=== PATIENT | female | born 1945 | race Caucasian/White ===

== ENCOUNTER 2018-05-29 10:02 | Inpatient (IN) | payer MEDICARE, OTHER ==
[2018-05-29] MEDS ORDERED: Fentanyl 100 MCG/2 ML VIAL SLOW IVP PRN (10:18)
[2018-05-29] MEDS ORDERED: Acetaminophen 325 MG TAB PO PRN (10:19)
[2018-05-29] MEDS ORDERED: Pantoprazole 40 MG VIAL IVP SCH (10:30)
--- NOTE | 2018-05-29 11:09 | HP ---
REASON FOR ADMISSION: Right upper quadrant pain and abnormal liver enzymes. HISTORY OF PRESENT ILLNESS: Ms. Ren is being admitted to observation at [facility] ry to ongoing right upper quadrant pain, abnormal LFTs. She was ill last week and went to the emerge ncy room at [facility] in [place] on 05/23/2018 for right upper quadrant pain. At that t nash, she had severe upper abdominal pain in the epigastrium that was nonradiating. She had chills, b ut no fever. There she was told she had pancreatitis. She was transferred to the emergency room at [facility] in [place] and was observed and then actually improved and then was discharge d home that afternoon. She was doing pretty well on liquid diet and followed up with Dr. Cramer, her PCP yesterday. Saturday evening she had tried to eat a little bit of egg and had severe pain again. Yesterday, on the , she had an amylase of 94. Lipase was not checked. White count was 8, hemogl obin 14, platelet count was 219. Urinalysis showed 1+ ketones, white blood cells, red blood cells. Comprehensive metabolic profile showed a glucose 134. Normal electrolytes and albumin of 3.1, biliru bin 1.8, alkaline phosphatase of 193 and AST of 88, ALT of 162. He called me and asked if I could se e her this morning. Today, she notes that she has some vague right upper quadrant pain. She is afraid to eat because she does not want to start hurting again. Otherwise, she is doing well. She notes that she has been treated for possible diverticulitis in the past, most recently in April en she took Cipro for a few days, but stopped it because it made her itch. She does not drink alcoho l more than about once or twice a month and when she does, she will have 1-2 drinks. Her last drink was over a month ago. She has not started any new medication. She is not aware of any problems of l ipids. Reviewing her imaging studies from 05/24/2018 at [facility], the CAT scan was done without contr ast and there was concern for cholelithiasis on that study, but the stomach, duodenum and pancreas ap parently appeared normal. A chest x-ray was performed that was normal and then an ultrasound was per formed of her right upper quadrant on 05/24/2018 that was read as unremarkable with a 5 mm common ady t and no pericholecystic fluid, gallbladder wall thickening or stones. Not all the labs are available from her visit in the [facility] Emergency Room, but what I have shows initial white count of 9.2, hemoglobin 13, platelet count 158 on 05/23/2018. The comprehensive metabolic panel on that day showed a BUN and creatinine of 16 and 0.83, bicarbonate 24, bilirubin wa s 2.1, AST was 125, ALT was 85, total protein was 6.6, albumin 3.8, lipase was 4313. Cardiac enzymes were done and were normal. The following day on 05/24/2018 a lipase was checked and was 2600. I do not have any labs that indicate any of the labs were rechecked at that time. As the patient was hav ing no pain she was sent home then. PAST MEDICAL HISTORY: Breast cancer in 2007. She had a mastectomy and chemotherapy. She had a colo noscopy twice, last was 9 years ago. She had diverticulosis only. She has had a laminectomy, tonsil lectomy, appendectomy. She has a fracture of her left wrist in the past. She has mild hypertension. HOME MEDICATIONS: Include atenolol. ALLERGIES: None known. SOCIAL HISTORY: She drinks alcohol 1-3 times per month and only 1-2 drinks when she does. She does not smoke, does not use drugs. FAMILY HISTORY: Negative for pancreatitis. REVIEW OF SYSTEMS: She notes that her sugars have been a little bit up. Her hemoglobin A1c is okay. She denies any dysuria, frequency, urgency. She denies any shortness breath, chest pain, dyspnea o n exertion, dysphagia, odynophagia, melena, hematochezia, hematemesis, weight gain, weight loss, marte ge in appetite, change in weight. PHYSICAL EXAMINATION: (In my office) VITAL SIGNS: Vitals are pending. Pulse is 87. LUNGS: Clear. CARDIAC: Regular rate and rhythm without clicks or murmurs. ABDOMEN: Soft, nontender, without any palpable hepatosplenomegaly. EXTREMITIES: No clubbing, cyanosis or edema. ABDOMEN: Soft and tender in right upper quadrant with palpation, but there is no rebound or guarding in epigastrium. There is no distention. Bowel sounds are positive. EXTREMITIES: No clubbing, cyanosis or edema. ASSESSMENT: The patient had an episode of what appears to be pancreatitis. It may have been biliary as her liver function tests were up, but the ultrasound was normal. CAT scan without contrast perfo rmed and was read as normal. She went home. She had pain again on Saturday night and really has not eaten since that time. She had elevated liver enzymes in Dr. Cramer's office. Her amylase is normal. Lipase was not rechecked. Presently she has mild right upper quadrant tenderness and persistently elevated LFTs in the setting of recent episode of pancreatitis. Differential diagnosis would mainly include biliary pancreatitis. There is some reference in the records from [place] that she had an episode like this in the past, but she states that pain was different, it was more lower abdomen and attributes that to diverticular disease. PLAN: We will place her into observation at [facility], reimage pancreas and gallbladder ar ea with contrast. Repeat her liver enzymes, lipase and labs and get a triglyceride level as well and have her seen by General Surgery.
[2018-05-29 11:55] LABS: #Eosinphils 0.1 thou/uL (0.0-0.7); #Lymphocytes 1.8 thou/uL (1.20-3.40); #Monocytes 0.7 thou/uL (0.11-0.59); #Neutrophils 7.6 thou/uL (1.40-6.50); %Eosinophils 1.1 % (0.0-10.0); %Lymphocytes 17.6 % (21.0-51.0); %Monocytes 6.9 % (0.0-10.0); %Neutrophils 74.5 % (42.0-75.0); Hemoglobin 14.9 g/dL (12.0-16.0); Mean Corpuscular HGB CONC 35.3 g/dL (32.0-36.0); Mean Corpuscular Hemoglobin 31.1 pg (27.0-31.0); Platelet Count 181 thou/uL (130-400); RBC Distribution Width 12.2 % (11.5-14.5); Red Blood Cell (RBC) Count 4.78 mill/uL (4.20-5.40); White Blood Cell (WBC) Count 10.2 thou/uL (4.8-10.8)
[2018-05-29 12:38] LABS: ALT (SGPT) 127 U/L (8-55); AST (SGOT) 76 U/L (5-34); Albumin 3.9 g/dL (3.4-4.8); Alkaline Phosphatase 182 U/L (40-150); Anion Gap 21 mmol/L (10-20); BUN (Urea Nitrogen) 15 mg/dL (9.8-20.1); Bilirubin, Total 2.1 mg/dL (0.2-1.2); Calc. Creatinine Clearance 0 mL/min (70-130); Calcium 9.6 mg/dL (7.8-10.44); Carbon Dioxide 16 mmol/L (23-31); Chloride 101 mmol/L (98-107); Estimated GFR-MDRD 73; Globulin 3.7 g/dL (2.4-3.5); Glucose 107 mg/dL (83-110); Lipase 144 U/L (8-78); Potassium 4.5 mmol/L (3.5-5.1); Protein, Total 7.6 g/dL (6.0-8.3); Sodium 133 mmol/L (136-145)
[2018-05-29] MEDS ORDERED: ISOVUE-370 76%-LOCM 1 ML ONE (13:03)
[2018-05-29 13:37] VITALS: BMI 33.8
[2018-05-29] MEDS: Sodium Chloride 0.9% 1,000 ML IV SCH ×2 (14:42→20:29)
--- NOTE | 2018-05-29 15:50 | CT ---
CT OF THE ABDOMEN AND PELVIS WITH IV CONTRAST 05/29/18 INDICATION: History of pancreatitis and upper abdominal pain. FINDINGS: No comparisons are available. No focal consolidation is seen involving the lung bases. There is mild fatty infiltration of the liver. The pancreas and adrenal glands are normal appearing. The spleen is normal appearing. No enlarged lymph nodes or free fluid is evident. The kidneys are nor mal appearing. The bladder is decompressed. The rectus and perirectal soft tissues are unremarkable. There is some scattered diverticula involving the colon without evidence of active diverticulitis. T he small bowel is of normal caliber. There is a fat containing umbilical hernia. There is scattered degenerative and osteoarthritic change. No definite active osseous abnormality is evident. IMPRESSION: 1. No acute CT abnormality demonstrated. 2. Fatty liver. 3. Colonic diverticulosis. POS: IZA
[2018-05-29] MEDS ORDERED: cefOXitin 2 GM in Sodium Chloride 0.9% 100 ML IVPB SCH (16:15)
--- NOTE | 2018-05-29 18:08 | CON ---
DATE OF CONSULTATION: 05/29/2018 SURGICAL CONSULTATION CONSULTING PHYSICIAN: Mick Rosen M.D. REASON FOR CONSULTATION: Biliary pancreatitis. HISTORY OF PRESENT ILLNESS: The patient is a very pleasant 72-year-old white female. She is from [facility]. About a week ago, she had an episode of severe right upper abdominal pain and was seen in the emergency room at the hospital in [place]. Laboratory studies apparently were indicative of a bilia ry pancreatitis with a lipase level of approximately 4000. Bilirubin is elevated at 2.1 at that time . A CT scan was suggestive of gallstones, but an ultrasound apparently revealed no gallstones. Ther e was no ductal dilatation. The patient was transferred to the [facility] at [place] that night and wa s discharged the following morning when she seemed to be feeling better. Her lipase had dropped down to 2600 at that time. Subsequently, she has continued to feel poorly and has a fear of eating as eating food makes her feel uncomfortable. She has had 1 or 2 episodes of pain, but not as severe. She saw her primary care ph ysician yesterday and was noted to have persistent laboratory abnormality with a bilirubin of 1.8, al kaline phosphatase of 193. She was seen by Dr. Rosen this morning who evaluated her history and rec ommended admission to the hospital for definitive further evaluation and treatment of this problem. LABORATORY DATA: Laboratory studies obtained earlier today revealed that her electrolytes are essent ially normal. Her CO2 level is low at 16. Her bilirubin level is still elevated at 2.1, alkaline ph osphatase is 182. Lipase level is 144. Her CBC reveals a white blood cell count of 10.2 with a hemo globin of 14.9. CT scan of the abdomen was obtained. It has not yet been read by Radiology, but perusal by myself re veals no definite evidence of cholelithiasis. She does appear to have gallbladder wall thickening. There is no evidence of ductal dilatation on the CT either. There is no significant evidence of panc reatitis as well. The patient notes that she has persistent right upper quadrant discomfort, although it is very minor in comparison to when she had a severe episode of pain. PAST MEDICAL HISTORY: 1. Hypertension. 2. Breast cancer in 2007 (treated with mastectomy, chemotherapy, hormonal therapy). 3. Right arm lymphedema. PAST SURGICAL HISTORY: 1. Right mastectomy. 2. Colonoscopy x2. 3. Cervical laminectomy. 4. Tonsillectomy. 5. Appendectomy. 6. Left wrist fracture. ALLERGIES: No known drug allergies. PERSONAL AND SOCIAL HISTORY: She is with 2 children. She is retired and currently lives by herself in [place]. She does not smoke. She drinks alcohol rarely and has not had any alcohol at a ll for over a month. REVIEW OF SYSTEMS: Otherwise, unremarkable. FAMILY HISTORY: Noncontributory. PHYSICAL EXAMINATION: CURRENT VITAL SIGNS: Temperature 97.9, pulse 64, blood pressure 120/68. GENERAL: She is a well-developed, well-nourished, pleasant, somewhat overweight white female. She i s 5 feet 3 inches tall, weighs 191 pounds. She is alert and oriented x3 and pleasant. HEAD, EYES, EARS, NOSE AND THROAT: Unremarkable. NECK: Supple without mass or tenderness. LUNGS: Clear to auscultation throughout. CARDIAC: Regular rate and rhythm without murmur. ABDOMEN: Soft with tenderness in the right upper quadrant with deeper palpation, but no evidence of peritonitis. EXTREMITIES: Unremarkable. ASSESSMENT AND PLAN: The patient who based upon her laboratory findings seems most likely to have díaz d an episode of biliary pancreatitis. No definite gallstones were seen on ultrasound or CT scan, but she still has elevated liver function tests and abnormal symptomatology and she definitely had pancr eatitis without another obvious etiology. At this point, I would recommend proceeding with laparosco pic cholecystectomy with cholangiogram. If her cholangiogram was unremarkable, then she will hopeful ly not require further ductal imaging. I have discussed the operation in detail with the patient as well as potential risks. She understands the indications and the rationale for my recommendation. S he agrees to proceed and is scheduled for surgery tomorrow.
[2018-05-30] MEDS: Sodium Chloride 0.9% 1,000 ML IV SCH ×3 (00:37→20:00)
[2018-05-30 05:12] LABS: #Eosinphils 0.1 thou/uL (0.0-0.7); #Lymphocytes 1.1 thou/uL (1.20-3.40); #Monocytes 0.6 thou/uL (0.11-0.59); #Neutrophils 5.6 thou/uL (1.40-6.50); %Basophils 0.3 % (0.0-1.0); %Eosinophils 1.8 % (0.0-10.0); %Lymphocytes 14.9 % (21.0-51.0); %Monocytes 8.1 % (0.0-10.0); Hemoglobin 12.6 g/dL (12.0-16.0); Mean Corpuscular HGB CONC 33.5 g/dL (32.0-36.0); Mean Corpuscular Volume 89.6 fL (78.0-98.0); Mean Platelet Volume 7.7 fL (7.4-10.4); Platelet Count 169 thou/uL (130-400); RBC Distribution Width 12.3 % (11.5-14.5); Red Blood Cell (RBC) Count 4.21 mill/uL (4.20-5.40); White Blood Cell (WBC) Count 7.5 thou/uL (4.8-10.8)
[2018-05-30 05:28] LABS: ALT (SGPT) 87 U/L (8-55); AST (SGOT) 49 U/L (5-34); Albumin 3.1 g/dL (3.4-4.8); Alkaline Phosphatase 139 U/L (40-150); Anion Gap 12 mmol/L (10-20); BUN (Urea Nitrogen) 11 mg/dL (9.8-20.1); Bilirubin, Total 1.5 mg/dL (0.2-1.2); Calc. Creatinine Clearance 107 mL/min (70-130); Calcium 8.3 mg/dL (7.8-10.44); Carbon Dioxide 23 mmol/L (23-31); Chloride 106 mmol/L (98-107); Estimated GFR-MDRD 88; Globulin 2.7 g/dL (2.4-3.5); Glucose 104 mg/dL (83-110); Lipase 100 U/L (8-78); Potassium 3.8 mmol/L (3.5-5.1); Protein, Total 5.8 g/dL (6.0-8.3); Sodium 137 mmol/L (136-145)
[2018-05-30] MEDS: Pantoprazole 40 MG VIAL IVP SCH (09:17)
[2018-05-30] MEDS ORDERED: Atenolol 25 MG TAB PO SCH (12:00)
[2018-05-30] MEDS ORDERED: Bupivacaine/Epinephrine 0.25% 30 ML VIAL ONE (14:09)
[2018-05-30] MEDS ORDERED: Iothalamate Meglumine 60% 50 ML VIAL FS ONE (14:09)
[2018-05-30] MEDS ORDERED: cefOXitin 2 GM VIAL ONE (14:45)
[2018-05-30] MEDS ORDERED: Sodium Chloride 0.9% 100 ML ONE (14:45)
[2018-05-30] MEDS ORDERED: Fentanyl 100 MCG/2 ML VIAL ONE ×2 (14:55→17:02)
[2018-05-30] MEDS ORDERED: Lidocaine 1% PF 5 ML VIAL ONE (14:56)
[2018-05-30] MEDS ORDERED: Dexamethasone 20 MG/5 ML VIAL ONE (14:56)
[2018-05-30] MEDS ORDERED: PROPOFOL 200 MG/20 ML VIAL ONE (14:56)
[2018-05-30] MEDS ORDERED: ePHEDrine/0.9% NaCl/PF SYRINGE 50 mg/10 ml ONE (14:56)
[2018-05-30] MEDS ORDERED: Glycopyrrolate 0.2 MG/ML 5 ML SYRINGE ONE (14:56)
[2018-05-30] MEDS ORDERED: Ondansetron HCl/PF 4 MG/2 ML Vial ONE (14:56)
[2018-05-30] MEDS ORDERED: Meperidine HCl/PF 25 MG/ML VIAL SLOW IVP PRN (16:48)
[2018-05-30] MEDS ORDERED: Promethazine HCl 25 MG/ML VIAL IM PRN ×2 (16:48→18:50)
[2018-05-30] MEDS ORDERED: Ondansetron HCl/PF 4 MG/2 ML Vial IVP PRN ×2 (16:48→18:50)
[2018-05-30] MEDS ORDERED: Promethazine HCl 25 MG/ML VIAL SLOW IVP PRN (16:48)
--- NOTE | 2018-05-30 17:05 | RAD ---
INTRAOPERATIVE CHOLANGIOGRAM: 05/30/18 HISTORY: Biliary pancreatitis. Upper abdominal pain with nausea and vomiting. FINDINGS/IMPRESSION: Two intraoperative fluoroscopic images from intraoperative cholangiogram are submitted for interpreta tion. The cystic duct is cannulated. Surgical clips are seen in the right upper quadrant related to c holecystectomy. The visualized opacified intrahepatic ducts are normal in caliber. The common duct is also normal in caliber. There is free spill of contrast into the duodenum, although the distal commo n duct is very small in size, and had a similar appearance on the recent CT scan examination at the l evel of the pancreatic head. No persistent filling defect is seen in the common duct. Correlation wit h intraoperative findings is recommended. POS: MERVAT
[2018-05-30] MEDS ORDERED: Dextrose 50% Abboject 50 ML SYRINGE SLOW IVP PRN (18:50)
[2018-05-30] MEDS ORDERED: Morphine 4 MG/ML Carpuject SLOW IVP PRN (18:50)
[2018-05-30] MEDS ORDERED: Mag-Al 1200 mg/1200 mg/30 ML UDCUP PO PRN (18:50)
[2018-05-30] MEDS ORDERED: hydrALAZINE 20 MG/ML VIAL SLOW IVP PRN (18:50)
[2018-05-30] MEDS ORDERED: Dextrose 5% in Water 1,000 ML IV PRN (18:50)
[2018-05-30] MEDS ORDERED: Calcium Carbonate 500 MG ChewTAB PO PRN (18:50)
[2018-05-30] MEDS ORDERED: Morphine 4 MG/ML VIAL SLOW IVP PRN (19:00)
[2018-05-30] MEDS: Lactated Ringer's 1,000 ML IV SCH (19:34)
[2018-05-30] MEDS: Ketorolac Tromethamine 30 MG/ML VIAL IVP SCH (20:57)
[2018-05-30] MEDS: Famotidine/PF 20 mg/2ml Vial SLOW IVP SCH (21:07)
[2018-05-30] MEDS: Famotidine 20 MG TAB PO SCH (21:07)
[2018-05-31] MEDS: Ketorolac Tromethamine 30 MG/ML VIAL IVP SCH ×3 (02:40→13:52)
[2018-05-31 04:53] LABS: ALT (SGPT) 93 U/L (8-55); AST (SGOT) 64 U/L (5-34); Albumin 3.2 g/dL (3.4-4.8); Alkaline Phosphatase 131 U/L (40-150); Anion Gap 17 mmol/L (10-20); BUN (Urea Nitrogen) 12 mg/dL (9.8-20.1); Bilirubin, Total 1.4 mg/dL (0.2-1.2); Calc. Creatinine Clearance 107 mL/min (70-130); Calcium 8.7 mg/dL (7.8-10.44); Carbon Dioxide 18 mmol/L (23-31); Chloride 105 mmol/L (98-107); Estimated GFR-MDRD 88; Globulin 3.1 g/dL (2.4-3.5); Glucose 139 mg/dL (83-110); Lipase 24 U/L (8-78); Potassium 4.5 mmol/L (3.5-5.1); Protein, Total 6.3 g/dL (6.0-8.3); Sodium 135 mmol/L (136-145)
[2018-05-31 05:33] LABS: Band 7 % (5-11); Hemoglobin 12.9 g/dL (12.0-16.0); Lymphocytes 12 % (21-51); MDiff Complete? YES; Mean Corpuscular Hemoglobin 30.9 pg (27.0-31.0); Mean Corpuscular Volume 88.5 fL (78.0-98.0); Mean Platelet Volume 8.5 fL (7.4-10.4); Monocytes 10 % (0-10); Neutrophil 71 % (42-75); PLT Morphology Comment Appears Adequate; Platelet Count 171 thou/uL (130-400); RBC Distribution Width 12.3 % (11.5-14.5); RBC Morphology Normal; Red Blood Cell (RBC) Count 4.17 mill/uL (4.20-5.40); White Blood Cell (WBC) Count 13.3 thou/uL (4.8-10.8)
[2018-05-31] MEDS: Lactated Ringer's 1,000 ML IV SCH (08:11)
[2018-05-31] MEDS: Famotidine 20 MG TAB PO SCH (08:13)
[2018-05-31] MEDS: Famotidine/PF 20 mg/2ml Vial SLOW IVP SCH (08:15)
[2018-05-31] MEDS: Pantoprazole 40 MG VIAL IVP SCH (08:15)
[2018-05-31] MEDS ORDERED: Atenolol 25 MG TAB PO SCH (09:00)
[2018-05-31 13:49] VITALS: BP 129/76; TEMP 98.2
--- NOTE | 2018-05-31 21:53 | DIS ---
DATE OF ADMISSION: 05/29/2018 DATE OF DISCHARGE: 05/31/2018 ADMITTING DIAGNOSES: Right upper quadrant abdominal pain, abnormal liver enzymes, recent bout of corona creatitis. Clinical outpatient findings regarding questionable gallstones. Also, [facility]. DISCHARGE DIAGNOSES: 1. Abnormal gallbladder on CAT scan with thickening enhancement of the wall, status post laparoscopi c cholecystectomy with no acute cholecystitis noted. 2. Abnormal liver enzymes with recent episode of pancreatitis of unclear etiology. It is associated with elevated liver enzymes at [facility]. Lipase is 144 on admission, 100 on the 24th and 24th day. 3. Elevated liver enzymes concerning for possible microlithiasis or choledocholithiasis. IOC was ne gative at the time of surgery. Bilirubin was 2.1 on admission, 1.5 yesterday, 1.4 today. AST has go ne from 76-49-63, ALT from 127-87-93, alkaline phosphatase from 182-139-131. 4. I suspect she probably had an episode of biliary pancreatitis or microlithiasis. 5. Dr. Ortiz did biopsy of the liver as there was no clear indication of a cause for elevated live r enzymes in no overt fatty liver, although on ultrasound. The outside imaging was concern for possi ble mild fatty liver. 6. Procedures, CAT scan of abdomen and pelvis with oral and IV contrast on day of admission showed f atty liver: Diverticulosis decompressed gallbladder with mild enhancement of the wall. PROCEDURES: Laparoscopic cholecystectomy by Dr. Dalton Ortiz in 05/30/2018. HOSPITAL COURSE: The patient was admitted secondary to ongoing abdominal pain. She has been dischar ged from outside hospital a couple days prior. She had persistently elevated liver enzymes and lucinda l amylase with the unclear etiology of her pain and inability to take p.o. She was admitted from my office. A CAT scan showed decompressed gallbladder mildly elevated liver enzymes and elevated lipase mildly as noted above. These have trended down through hospitalization. General Surgery was consul monica as there was no overt etiology for her pancreatitis noted with no new drugs, no medications, no v iral symptoms, no exposures and she had new onset of elevation of liver enzymes with this. It was no monica on initial presentation at the outside facility. She underwent laparoscopic cholecystectomy, whi ch was uneventful. Her liver function test are coming down. Her lipase is now normal. She is lesvia ating a diet. PLAN: 1. She will be discharged home, resume home medications. Follow up in my office in 1-2 weeks for li lashell biopsy results and to check her labs. She is to follow up Dr. Ortiz in 2 weeks for post-surgic al evaluation. 2. She will continue her home medicines and give her some Ultram to take p.r.n. for pain.
--- NOTE | 2018-06-02 15:04 | OP ---
DATE OF OPERATION: 05/30/2018 PREOPERATIVE DIAGNOSES: Recent history of pancreatitis, suspected to be biliary pancreatitis with p ersistent elevation of her liver function tests (including elevated bilirubin of 2.1 and elevation of alkaline phosphatase). INDICATIONS: I have recommended laparoscopic cholecystectomy, although it is recognized that the ult rasound revealed no evidence of gallstones within the gallbladder. I discussed all this in detail wi th the patient as well as her software implementation specialist, Dr. Rosen. Both understand and agree to proceed w [facility] surgery at this time. OPERATION PERFORMED: Laparoscopic cholecystectomy with intraoperative cholangiogram. DESCRIPTION OF OPERATION: Informed consent was obtained, patient was taken to the operating room whe re general endotracheal anesthesia was obtained with the patient in the supine position. After, she was prepped with ChloraPrep and draped in sterile fashion. Local anesthetic was infiltrated using 0. 25% Marcaine with epinephrine and a 5-mm right upper quadrant incision was created through which a Ve ress needle was passed into the peritoneal cavity and pneumoperitoneum established using carbon dioxi de up to a pressure of 15 mmHg. A 5-mm trocar port was passed through this same incision. Laparosco pic camera was passed through this port. Under direct vision, I placed an 11 mm supraumbilical port. Camera was replaced through this port and the operation was continued. I placed two additional 5 m m right upper quadrant ports in the usual location. Attention was turned to the gallbladder. This was grasped and retracted in cephalad direction. It w as somewhat distended, but with minimal inflammation. There were no adhesions to the gallbladder. T he apex was grasped and retracted laterally and inferiorly. Careful dissection was carried out the a pex of the gallbladder to identify the cystic duct and cystic artery. The artery was divided between clips, leaving two on the side to remain within the abdomen. The duct was clipped proximally. When I attempted to make a ductotomy, in that is where the duct was incised, that the duct in the depth o f dividing. With some degree of difficulty, I was able to identify the stump of the duct and passed a cholangiogr am catheter through this in order to obtain a cholangiogram. This revealed normal ductal anatomy. T he distal duct at the ampulla of vater appeared to be somewhat narrowed, but contrast spilled quickly and easily into the duodenum. There was no evidence of filling defect. The cystic duct was doubly clipped. The gallbladder was dissected from the gallbladder fossa using e lectrocautery. Meticulous hemostasis obtained within the bed of the gallbladder. The gallbladder wa s removed through the supraumbilical port. The fascia was closed with 0 Vicryl suture using a GraNee needle. Right upper quadrant was thoroughly irrigated and all irrigants were aspirated. All ports and instruments removed under direct vision. Pneumoperitoneum was carefully evacuated. Quarter-perc ent Marcaine with epinephrine was infiltrated at each port site. Skin edges approximated with 4-0 Mo nocryl subcuticular suture. Dermabond was placed externally. There were no complications. Patient tolerated the procedure well and was taken to recovery room in stable condition.
== END 2018-05-31 14:28 | disposition home or self-care (01) | DRG 419 ==
LOC: T4-B 10:02 → OBSVTOIN 10:02
PROVIDERS: ADMIT Internal Medicine Gastroenterology; ATTEND Internal Medicine Gastroenterology
PROC: 0FT44ZZ Resection of Gallbladder, Percutaneous Endoscopic Approach (ICD-10-PCS; principal; 2018-05-29)
PROC: 0FB04ZX Excision of Liver, Percutaneous Endoscopic Approach, Diagnostic (ICD-10-PCS; 2018-05-29)
PROC: BF101ZZ Fluoroscopy of Bile Ducts using Low Osmolar Contrast (ICD-10-PCS; 2018-05-29)
DX: K85.10 Biliary acute pancreatitis without necrosis or infection (principal); Z85.3 Personal history of malignant neoplasm of breast; Z92.21 Personal history of antineoplastic chemotherapy; K57.30 Diverticulosis of large intestine without perforation or abscess without bleeding; I10 Essential (primary) hypertension; R74.8 Abnormal levels of other serum enzymes; Z90.11 Acquired absence of right breast and nipple
CPT/HCPCS: 36415; 36416; 47532; 74177; 80053; 83690; 84478; 85025; 88304; 88307; 88313; A4216; C9113; J0694; J1100; J1885; J2001; J2270; J2405; J2704; J3010; J7050; Q9961; S0028